=== PATIENT | female | born 2005 | race African-American/Black ===

== ENCOUNTER 2024-12-11 18:08 | Outpatient (REF) | payer MEDICAID, SELFPAY ==
[2024-12-13 12:53] LABS: Chlamydia Result Negative (Negative); GC Result Negative (Negative)
== END 2024-12-11 18:09 | disposition home or self-care (01) ==
LOC: NCHCN 18:08
PROVIDERS: PCP Family Medicine; Visit Provider Family Medicine
DX: Z11.3 Encounter for screening for infections with a predominantly sexual mode of transmission (principal)
CPT/HCPCS: 87491; 87591